=== PATIENT | female | born 1945 | race Caucasian/White ===

== ENCOUNTER 2022-11-18 21:30 | Emergency (ER) | payer MEDICARE, OTHER ==
[~2022-11-18] VITALS: Ht 157.5 cm; Wt 54.4 kg
[~2022-11-18 21:30] MED LIST: LEVO-481 PO
[2022-11-18 21:34] VITALS: BP 102/51; PULSE 75; RESP 18; TEMP 98; O2SAT 95
--- NOTE | 2022-11-18 21:40 | NUR ---
BLS TO LOBBY AMBULATORY FOR PATIENT
--- NOTE | 2022-11-19 04:04 | NUR ---
PT TAKEN TO BED 2
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
--- NOTE | 2022-11-19 04:26 | NUR ---
Dr. Sadler examining patient.
--- NOTE | 2022-11-19 04:28 | NUR ---
ALVINA AT BEDSIDE EXAMINING THE PT. PT REPORTS THAT HE HAD POST SURGERY ON RIGHT KNEE WITH TITANUM RAD OF RIGHT LEG. REPORTS THAT SHE IS HOMELESS.
[2022-11-19] MEDS ORDERED: HYDROcodone/APAP 5/325 MG 1 TAB TAB PO ONE (04:30)
--- NOTE | 2022-11-19 06:03 | NUR ---
pt resting on bed. with eyes closed. chest rise and fall symmetrical. not in distress. on monitor. call light within reach. all needs met at this time. bed locked in lowest position. side rails x2 for safety.
--- NOTE | 2022-11-19 07:14 | NUR ---
pt. verbalaized that she has a friend the she will call to pick her up
[2022-11-19 07:30] VITALS: BP 111/66; PULSE 70; RESP 18; TEMP 98.1; O2SAT 99
--- NOTE | 2022-11-19 07:30 | NUR ---
Patient discharged with v/s stable. Written and verbal after care instructions given and explained. Patient verbalized understanding. Ambulatory with steady gait. All questions addressed prior to discharge. Advised to follow up with PMD.
== END 2022-11-19 07:30 ==
LOC: MED 21:30
DX: M17.11 Unilateral primary osteoarthritis, right knee (principal); M25.561 Pain in right knee; Z79.899 Other long term (current) drug therapy
CPT/HCPCS: 73562; 99283